=== PATIENT | female | born 1980 | race Caucasian/White ===

== ENCOUNTER 2019-05-13 12:32 | Emergency (ER) | payer OTHER ==
[~2019-05-13] VITALS: Ht 167.6 cm; Wt 63.5 kg
--- NOTE | 2019-05-13 12:36 | NUR ---
Admit a38 yo female, ambulance rescue from a hotel with altered mental status and low blood pressure. Pt is lethargic but arousable to name. Verbally responsive but speech is so slow. Placed on monitor. sbp is 100/66.
[2019-05-13] MEDS ORDERED: IV NORMAL SALINE 1000 ML BAG IV ONE (13:00)
[2019-05-13 13:07] LABS: BASOPHILS # (AUTO) 0.1 K/uL (0.0-8.0); BASOPHILS % (AUTO) 1.1 % (0.0-2.0); HEMATOCRIT 41.8 % (31.2-41.9); HEMOGLOBIN 13.7 g/dL (10.9-14.3); LYMPHOCYTES % (AUTO) 41.7 % (20.5-51.5); MEAN CORPUSCULAR HEMOGLOBIN 30.4 uug (24.7-32.8); MEAN CORPUSCULAR HGB CONC 33 g/dL (32.3-35.6); MONOCYTES # (AUTO) 0.3 K/uL (2.0-10.0); MONOCYTES % (AUTO) 7.2 % (0.0-11.0); NEUTROPHILS # (AUTO) 2.4 K/uL (1.8-8.9); PLATELET COUNT (AUTO) 249 K/uL (179-408); RED BLOOD CELL COUNT(AUTO) 4.49 MIL/uL (3.63-4.92); WHITE BLOOD COUNT (AUTO) 4.8 K/uL (3.8-11.8)
[2019-05-13 13:18] LABS: CARBON DIOXIDE 30 mmol/L (21-32); CHLORIDE 113 mmol/L (98-107); CREATININE 0.7 mg/dL (0.6-1.3); GLUCOSE 93 mg/dL (74-106); POTASSIUM 3.8 mmol/L (3.5-5.1); UREA NITROGEN, BLOOD 11 mg/dL (7-18)
[2019-05-13 13:30] LABS: THYROID STIMULATING HORMONE 1.223 mIU/mL (0.358-3.740)
[2019-05-13 13:31] LABS: ALANINE AMINOTRANSFERASE 12 U/L (14-59); ALKALINE PHOSPHATASE 35 U/L (50-136); ASPARTATE AMINOTRANSFERASE 11 U/L (15-37); BILIRUBIN,DIRECT 0.1 mg/dL (0.0-0.2); BILIRUBIN,TOTAL 0.2 mg/dL (0.2-1.0); TOTAL PROTEIN, SERUM 6.6 g/dL (6.4-8.2)
[2019-05-13 13:33] LABS: ACETAMINOPHEN < 2.0 ug/mL (10-30)
[2019-05-13 13:37] LABS: ETHANOL 386 MG/DL (0-0)
--- NOTE | 2019-05-13 15:00 | NUR ---
Pt has been sound asleep in bed. IVF infusing well. No apparent respiratory distress.
[2019-05-13 16:19] LABS: *BILIRUBIN,URIN NEGATIVE (NEGATIVE); *BLOOD, URINE NEGATIVE (NEGATIVE); *CLARITY,URINE CLEAR (CLEAR); *COLOR,URINE YELLOW (YELLOW); *KETONES,URINE NEGATIVE (NEGATIVE); *UROBILINOGEN,URINE 0.2 E.U./dl (NORMAL); LEUKOCYTE ESTERASE ,URINE NEGATIVE (NEGATIVE); NITRITE, URINE NEGATIVE (NEGATIVE); UGLUCOSE NEGATIVE (NEGATIVE)
[2019-05-13 16:27] LABS: *AMPHETAMINE, URINE NEGATIVE (NEGATIVE); *BARBITURATE, URINE NEGATIVE (NEGATIVE); *CANNABINOID, URINE NEGATIVE (NEGATIVE); *COCCAINE, URINE NEGATIVE (NEGATIVE); *OPIATE, URINE NEGATIVE (NEGATIVE); *PHENCYCLIDINE SCREEN,URINE NEGATIVE (NEGATIVE)
--- NOTE | 2019-05-13 17:00 | NUR ---
Pt has been discharged. Awaiting for pt to wake up.
--- NOTE | 2019-05-13 18:00 | NUR ---
Pt had a turkey sandwich and tolerated well. Pt signed the discharge form. And she signed the homeless form. More awake and very pleasant.
[2019-05-13 18:40] VITALS: BP 105/66
== END 2019-05-13 18:30 | disposition home or self-care (01) ==
LOC: ER 12:32
DX: F10.129 Alcohol abuse with intoxication, unspecified (principal); R41.82 Altered mental status, unspecified; Y90.8 Blood alcohol level of 240 mg/100 ml or more
CPT/HCPCS: 36415; 70450; 71045; 80048; 80076; 80307; 81001; 82140; 83605; 84443; 84484; 84702; 85025; 85730; 87040; 96360; 96361; 99284; G0480 ×2; G0481; 70030-TC; A4663; J7030

== ENCOUNTER 2019-05-19 12:08 | Inpatient (IN) | payer OTHER ==
[~2019-05-19] VITALS: Ht 177.8 cm; Wt 63.2 kg
[2019-05-19] MEDS ORDERED: LORAZEPAM 0.5 MG TABLET PO ONE (12:45)
--- NOTE | 2019-05-19 12:45 | NUR ---
Per pt expressed suicidal ideation due to her current living conditions during MSE.
--- NOTE | 2019-05-19 12:46 | NUR ---
patient in hospital gown. Her belongings are at nurses station. I gave her a sandwich, juice and water.
[2019-05-19] MEDS ORDERED: LORAZEPAM 1 MG TABLET ONE (12:56)
[2019-05-19 13:10] LABS: *BILIRUBIN,URIN 1+ (NEGATIVE); *CLARITY,URINE CLOUDY (CLEAR); *COLOR,URINE YELLOW (YELLOW); *KETONES,URINE 2+ (NEGATIVE); *UROBILINOGEN,URINE 0.2 E.U./dl (NORMAL); LEUKOCYTE ESTERASE ,URINE NEGATIVE (NEGATIVE); NITRITE, URINE NEGATIVE (NEGATIVE); UGLUCOSE NEGATIVE (NEGATIVE)
[2019-05-19 13:16] LABS: BASOPHILS # (AUTO) 0.1 K/uL (0.0-8.0); BASOPHILS % (AUTO) 1.3 % (0.0-2.0); EOSINOPHILS % (AUTO) 0.3 % (0.0-7.0); HEMATOCRIT 42.5 % (31.2-41.9); HEMOGLOBIN 14.3 g/dL (10.9-14.3); LYMPHOCYTES % (AUTO) 13.3 % (20.5-51.5); MEAN CORPUSCULAR HGB CONC 34 g/dL (32.3-35.6); MEAN CORPUSCULAR VOLUME 92.4 fL (75.5-95.3); MONOCYTES # (AUTO) 0.6 K/uL (2.0-10.0); NEUTROPHILS % (AUTO) 77.1 % (38.5-71.5); PLATELET COUNT (AUTO) 202 K/uL (179-408); WHITE BLOOD COUNT (AUTO) 7.7 K/uL (3.8-11.8)
[2019-05-19 13:20] LABS: CARBON DIOXIDE 28 mmol/L (21-32); CHLORIDE 101 mmol/L (98-107); CREATININE 0.9 mg/dL (0.6-1.3); GLUCOSE 89 mg/dL (74-106); POTASSIUM 3.7 mmol/L (3.5-5.1); UREA NITROGEN, BLOOD 14 mg/dL (7-18)
[2019-05-19 13:26] LABS: ETHANOL < 3 MG/DL (0-0)
[2019-05-19 13:27] LABS: ALANINE AMINOTRANSFERASE 25 U/L (14-59); ALKALINE PHOSPHATASE 59 U/L (50-136); ASPARTATE AMINOTRANSFERASE 33 U/L (15-37); BILIRUBIN,DIRECT 0.3 mg/dL (0.0-0.2); BILIRUBIN,TOTAL 1.4 mg/dL (0.2-1.0); TOTAL PROTEIN, SERUM 7.1 g/dL (6.4-8.2)
[2019-05-19 13:28] LABS: *BLOOD, URINE TRACE (NEGATIVE)
[2019-05-19 13:29] LABS: BACTERIA,URINE FEW /HPF (NONE SEEN); MUCUS,URINE MODERATE /LPF (0-FEW); RBC,URINE 0-3 /HPF (0-3); SQUAMOUS EPITHELIAL CELL,UR FEW /HPF (NONE SEEN); WBC,URINE 0-3 /HPF (0-3)
[2019-05-19 13:34] LABS: THYROID STIMULATING HORMONE 1.384 mIU/mL (0.358-3.740)
[2019-05-19 13:36] LABS: *URINE HCG, QUAL NEGATIVE (NEGATIVE)
--- NOTE | 2019-05-19 13:39 | NUR ---
Called Yoan Campbell for psych eval, eta 60-90 mins.
--- NOTE | 2019-05-19 14:22 | NUR ---
PATIENT DRANK SOME WATER AND ATE A SNACK. SHE IS AWAKE AND ALERT WITH NO NEW COMPLAINTS. I ALSO GAVE HER SOME CLEAN CLOTHES TO KEEP. SHE IS IN A HOSPITAL GOWN FOR NOW.
--- NOTE | 2019-05-19 15:30 | NUR ---
JR MCCORMACKT AT BEDSIDE FOR EVAL..
[2019-05-19 15:35] LABS: *AMPHETAMINE, URINE POSITIVE (NEGATIVE); *BARBITURATE, URINE NEGATIVE (NEGATIVE); *CANNABINOID, URINE NEGATIVE (NEGATIVE); *COCCAINE, URINE NEGATIVE (NEGATIVE); *OPIATE, URINE NEGATIVE (NEGATIVE); *PHENCYCLIDINE SCREEN,URINE NEGATIVE (NEGATIVE)
--- NOTE | 2019-05-19 16:46 | NUR ---
AWAITING CALL FROM [facility] FOR PLACEMENT AND REPORT.
--- NOTE | 2019-05-19 17:30 | NUR ---
TONY FROM [facility] CALLED AND STATED THAT THEY CANNOT ACCEPT THIS PATIENT BECAUSE OF INSURANCE REASONS. I WILL CALL JR HOGAN FOR OTHER OPTIONS. PATIENT IS RESTING COMFORTABLY IN HER ROOM
[2019-05-19] MEDS ORDERED: IV NORMAL SALINE 1000 ML BAG IV ONE (18:30)
[2019-05-19] MEDS ORDERED: LORAZEPAM 2 MG/1 ML VIAL IV ONE (18:30)
--- NOTE | 2019-05-19 18:31 | NUR ---
PATIENT STATES SHE FEELS "SWEATY" AND IS "WITHDRAWING", STATES LAST ETOH WAS LAST NIGHT.
[2019-05-19] MEDS ORDERED: LORAZEPAM 2 MG/1 ML VIAL ONE (18:44)
--- NOTE | 2019-05-19 19:05 | NUR ---
PATIENT AWARE OF PENDING ADMISSION TO HOSPITAL. HAND OFF REPORT GIVEN TO HENNY CHEN
--- NOTE | 2019-05-19 19:11 | NUR ---
ASSUMED CARE OF PATIENT. PATIENT TO BE ADMITTED HERE AT [facility] PER REGISTRATION. AWAITING BED ASSIGNMENT AND REPORT ACCEPTANCE
[2019-05-19] MEDS ORDERED: cymbalta PO (19:13)
[2019-05-19] MEDS ORDERED: GABA-534 PO (19:13)
[2019-05-19] MEDS ORDERED: prazosin PO (19:13)
--- NOTE | 2019-05-19 19:53 | NUR ---
Report to Ila CHEN on Telemetry
--- NOTE | 2019-05-19 20:07 | NUR ---
Pt. admitted to Telemetry , under care of Ade. Belongs List completed
[2019-05-19 20:15] VITALS: BP 104/79
--- NOTE | 2019-05-19 20:15 | NUR ---
RECEIVED PT FROM ER VIA [facility]. UNDER THE CARE OF DR. ELADIA LINK. DX: ACUTE ALCOHOL WITHDRAWAL.PT IN NO ACUTE DISTRESS. BELONGING LIST DONE. ADMISSION PROCESS AND CARE PLAN INITIATED. SAFETY AND COMFORT PROVIDED. [facility] ASSESSMENT DONE. WILL CONTINUE TO MONITOR.
[2019-05-19] MEDS ORDERED: TDAP DIPH,PERTUSS,TET VAC/PF 0.5 ML DISP.SYRIN IM ONE ×2 (21:15→21:51)
[2019-05-19] MEDS ORDERED: ACETAMINOPHEN 325 MG TABLET PO PRN (21:15)
[2019-05-19] MEDS ORDERED: ONDANSETRON 4 MG/2 ML VIAL IV PRN (21:15)
[2019-05-19] MEDS ORDERED: Z GUARD REMEDY PASTE 57 GM TUBE TOP PRN (21:15)
[2019-05-19] MEDS ORDERED: MAGNESIUM HYDROXIDE 30 ML LIQUID UDC PO PRN (21:15)
[2019-05-19] MEDS ORDERED: CEFTRIAXONE 1 G VIAL IM ONE (21:15)
[2019-05-19] MEDS ORDERED: ZOLPIDEM 5 MG TABLET PO PRN (21:15)
[2019-05-19] MEDS ORDERED: AZITHROMYCIN 250 MG TABLET PO ONE (21:15)
[2019-05-19] MEDS ORDERED: LORAZEPAM 2 MG/1 ML VIAL IV PRN (21:15)
--- NOTE | 2019-05-19 21:15 | NUR ---
PT CONSENTED TO HAVE THE TDAP. ELADIA LINK NP INFORMED THE PT REGARDING THE VACCINATION. PT STABLE. NO SUICIDAL IDEATION. WILL CONTINUE TO MONITOR.
[2019-05-19] MEDS ORDERED: CEFTRIAXONE 500 MG VIAL ONE (21:49)
[2019-05-19] MEDS: IV NS 1000 ML 1,000 ML IV PRN (21:57)
[2019-05-20 00:17] VITALS: BP 111/76
[2019-05-20 04:52] VITALS: BP 107/73
--- NOTE | 2019-05-20 06:12 | NUR ---
PT SLEPT INTERMITTENTLY. PT SHOWS NO SIGNS OF ACUTE DISTRESS. IV INTACT. SAFETY AND COMFORT PROVIDED. PRESCRIBED MEDICATION GIVEN AND PT TOLERATED IT WELL. NO PRN MEDICATION GIVEN. NO TREMORS AND S.I. NOTED. ALL NEEDS ARE MET. WILL ENDORSE TO INCOMING NURSE FOR CONTINUITY OF CARE.
[2019-05-20 06:30] LABS: BASOPHILS % (AUTO) 0.6 % (0.0-2.0); EOSINOPHILS # (AUTO) 0.2 K/uL (0.0-0.7); EOSINOPHILS % (AUTO) 3.1 % (0.0-7.0); HEMOGLOBIN 13.3 g/dL (10.9-14.3); LYMPHOCYTES # (AUTO) 1.6 K/uL (20.0-40.0); LYMPHOCYTES % (AUTO) 29.4 % (20.5-51.5); MEAN CORPUSCULAR HEMOGLOBIN 30.6 uug (24.7-32.8); MEAN CORPUSCULAR HGB CONC 33 g/dL (32.3-35.6); MEAN CORPUSCULAR VOLUME 92.3 fL (75.5-95.3); MONOCYTES # (AUTO) 0.5 K/uL (2.0-10.0); MONOCYTES % (AUTO) 8.9 % (0.0-11.0); NEUTROPHILS # (AUTO) 3.2 K/uL (1.8-8.9); PLATELET COUNT (AUTO) 183 K/uL (179-408); RED BLOOD CELL COUNT(AUTO) 4.33 MIL/uL (3.63-4.92); WHITE BLOOD COUNT (AUTO) 5.5 K/uL (3.8-11.8)
[2019-05-20 06:50] LABS: BILIRUBIN,TOTAL 1.2 mg/dL (0.2-1.0); CREATININE 0.7 mg/dL (0.6-1.3); PHOSPHOROUS 3.4 mg/dL (2.5-4.9); POTASSIUM 3.3 mmol/L (3.5-5.1)
--- NOTE | 2019-05-20 07:46 | NUR ---
RECEIVED PT RESTING IN BED. NO ACUTE DISTRESS NOTED. NO SOB NOTED. PT DENIES PAIN AT THIS TIME. PT DENIES SI AT THIS TIME. TELE MONITOR SHOWS SINUS RHYTHM. CALL LIGHT WITHIN REACH. BED LOCKED AND IN LOW POSITION. WILL [id number] TO MONITOR.
[2019-05-20] MEDS ORDERED: POTASSIUM CHLORIDE 20 MEQ TAB.PRT.SR PO ONE (08:45)
[2019-05-20] MEDS ORDERED: PANTOPRAZOLE SODIUM 40 MG VIAL IV SCH (09:00)
[2019-05-20] MEDS ORDERED: NICOTINE 14 MG/24HR PATCH TD SCH (09:00)
[2019-05-20] MEDS ORDERED: THIAMINE HCL 100 MG TABLET PO SCH (09:00)
[2019-05-20] MEDS ORDERED: FOLIC ACID 1 MG TABLET PO SCH (09:00)
[2019-05-20] MEDS: CHLORDIAZEPOXIDE HCL 25 MG CAPSULE PO SCH ×3 (09:43→17:28)
[2019-05-20 11:29] VITALS: BP 107/73
--- NOTE | 2019-05-20 12:05 | NUR ---
PT RESTING IN BED. NO ACUTE DISTRESS OR SOB NOTED. PT ALERT AND ORIENTED X3. PT COOPERATIVE. PT DENIES PAIN AT THIS TIME. PT DENIES ANY SUICIDAL IDEATION AT THIS TIME. PT HAS BEEN DC'D FROM TELEMETRY MONITORING. CALL LIGHT WITHIN REACH. WILL CONTINUE TO MONITOR.
[2019-05-20] MEDS: IV NS 1000 ML 1,000 ML IV PRN (12:31)
--- NOTE | 2019-05-20 14:54 | NUR ---
SS consultation requested by Dr. Errol Cristobal, JEAN-PIERRE. 10:20am: SW met with patient this morning. Patient was in her assigned hospital room, in bed, awake. Patient is a 38 year old female, alert, oriented. Patient was receptive with meeting with this SW, maintaining appropriate eye contact throughout the interview, cooperative, coherent, thoughts process and behavior were WNL. Patient lives in [place] in an apartment with her boyfriend and their 18 month old son. Last week, she was on a greyhound bus on her way to [place] to enroll in a substance abuse treatment program at [facility] in [place]. Patient stated that she drank on the bus and passed out, and missed her stop. Patient stated that she ended up in [place], and all her belongings went missing. Patient stated she has been in [place] for the past week and has been living on the streets because she has no belongings and no money, and unable to contact any family/friends because all the phone numbers are in her cell phone which she no longer has. Patient stated she has been using alcohol and drugs over the past week, and has been intoxicated for most of the time, even to a point of blacking out. Patient stated having a long-standing hx of alcohol abuse, which began at the age of 21. Patient stated that she typically goes on 3 day drinking binges where she passes out. Patient stated being in substance abuse programs a couple of times in the past, with periods of sobriety, one lasting for 4 years and another one lasting for 1 year. Patient reported also having a long psychiatric history, being diagnosed with PTSD, MDD, and Generalized Anxiety. Patient reported a history of several inpatient psychiatric hospitalizations due to SI and medication evaluation. Patient stated one of her recent suicide attempt was about 2 years ago when [place] was going [place], but was stopped by bridge patrol. Patient reported that she also bought a bottle of Tylenol about 2 weeks ago, with the plan to overdose, but she did not go through with it. Patient reported that she was currently feeling hopeless, ashamed, sad, terrified, overwhelmed, and that she was a failure as a mother. Patient reported that she cannot live on the streets of [place] anymore, and that she would rather because I just want all this to be over. Patient stated that she was not sure how she would exactly hurt herself, but [place] [address], but Im thinking I dont want to hurt anyone down below. Patient stated I feel safe here and I dont want to hurt myself right now. Patient expressed wanting to get help and being open to either a psychiatric treatment program or a substance abuse treatment program. Patient expressed agreement with voluntarily admitting herself to a psychiatric program. Patient provided this SW with a verbal consent to speak with patients mother Live [phone] and patients boyfriend Pedro [phone]. SW met with DEV Badillo and discussed patients case. DEV Badillo stated that she had already spoken with the patient and the patient had also given her verbal consent to speak with patients mother. DEV Badillo stated that she spoke with patients mother Live, who stated that there was a missing persons report made to the police. DEV Badillo then stated that she also spoke with the science and operations officer on the missing person case, [place] (badge ID# [id number]), , and he stated that the case will now be closed since patient was located. Case # [id number]. At 11:15am, this SW and DEV Badillo called patients boyfriend Pedro, , but were unable to connect with him. A voicemail message was left by DEV Badillo, asking Pedro to call DEV Badillo back. All above reported to Dr. Errol Cristobal. SS to follow-up, if needed. CM to coordinate discharge planning for placement for ongoing psychiatric and/or substance abuse treatment, once patient is medically cleared.
[2019-05-20 15:09] VITALS: BP 104/59
[2019-05-20] MEDS ORDERED: FOLI1TAB16 PO (15:44)
[2019-05-20] MEDS ORDERED: CHLO25CA22 PO (15:44)
[2019-05-20] MEDS ORDERED: THIA100T13 PO (15:44)
[2019-05-20] MEDS ORDERED: NICO-671 TD (15:44)
[2019-05-20] MEDS ORDERED: ONDA4TAB11 PO (16:06)
[2019-05-20] MEDS ORDERED: NICO1PAT44 TP (16:06)
[2019-05-20] MEDS ORDERED: LORA1TAB PO (16:06)
--- NOTE | 2019-05-20 18:15 | NUR ---
PT TO BE DISCHARGED TO [facility]. PT ALERT AND ORIENTED X3. NO ACUTE DISTRESS NOTED. NO SOB NOTED. IV REMOVED INTACT. BELONGINGS RETURNED. CLIENT EVALUATOR NURSE TO COMPLETE DISCHARGE AMBULANCE WILL ARRIVE AT 1930.
--- NOTE | 2019-05-20 19:36 | NUR ---
ASHWININ CONTACTED. REPORT GIVEN TO GILMER.
[2019-05-20 20:02] VITALS: BP 104/70
--- NOTE | 2019-05-20 21:00 | NUR ---
report given to ambulance personnel. v/s stable. Arm band ID off. admissions packet and belongings list completed by morning nurse. no IV line. discharged safely by roger.
[2019-05-21 07:09] LABS: HEPATITIS B SURFACE AB Non Reactive (.); HEPATITIS B SURFACE AG Negative (Negative)
== END 2019-05-20 22:00 | DRG 773 ==
LOC: ER 12:08 → TELE3 20:03 → MEDSURG3 05-20 10:16
PROVIDERS: ADMIT Hospitalist; ATTEND Hospitalist
DX: F10.239 Alcohol dependence with withdrawal, unspecified (principal); F11.10 Opioid abuse, uncomplicated; R45.851 Suicidal ideations; F33.2 Major depressive disorder, recurrent severe without psychotic features; E44.1 Mild protein-calorie malnutrition; R17 Unspecified jaundice; F15.10 Other stimulant abuse, uncomplicated; Y90.0 Blood alcohol level of less than 20 mg/100 ml; O99.345 Other mental disorders complicating the puerperium; F53.0 Postpartum depression; F12.10 Cannabis abuse, uncomplicated; S70.312A Abrasion, left thigh, initial encounter; S70.311A Abrasion, right thigh, initial encounter; X58.XXXA Exposure to other specified factors, initial encounter; Y92.89 Other specified places as the place of occurrence of the external cause; Y99.8 Other external cause status; E87.6 Hypokalemia; F17.210 Nicotine dependence, cigarettes, uncomplicated; F41.9 Anxiety disorder, unspecified; Z59.0 Homelessness; E51.9 Thiamine deficiency, unspecified; N89.8 Other specified noninflammatory disorders of vagina
CPT/HCPCS: 36415; 76856; 80307; 83690; 83735; 84100; 84443; 84703; 85025; 86705; 86706; 86803; 87340; 87806; 90715; A4663; C9113; G0378; G0480; J0696; J2060; J2405; J7030; Q0144